=== PATIENT | male | born 1965 | race Caucasian/White ===

== ENCOUNTER 2017-07-28 02:41 | Emergency (ER) | payer MEDICARE, OTHER ==
[2017-07-28] MEDS: IBUPROFEN 600 MG TAB PO (03:25)
[2017-07-28 03:57] LABS: URINE BLOOD (Dip) POC Negative (NEGATIVE); URINE GLUCOSE (Dip) POC Negative (NEGATIVE); URINE KETONES (Dip) POC Negative (NEGATIVE); URINE LEUKOCYTE EST (Dip) POC Trace (NEGATIVE); URINE NITRITE (Dip) POC Negative (NEGATIVE); URINE TOTAL PROTEIN POC Negative (NEGATIVE)
== END 2017-07-28 05:50 | disposition home or self-care (01) ==
LOC: FTE 02:41
DX: N50.89 Other specified disorders of the male genital organs (principal); R30.0 Dysuria; I10 Essential (primary) hypertension
CPT/HCPCS: 76870; 81003; 87086; 87591; 99284-25